=== PATIENT | male | born 1975 | race Caucasian/White ===

== ENCOUNTER 2018-06-15 20:13 | Emergency (ER) | payer MEDICAID ==
[~2018-06-15] VITALS: Ht 177.8 cm; Wt 69.7 kg
[2018-06-15 20:19] VITALS: BP 133/101
[2018-06-15] MEDS ORDERED: acetaminophen 325mg tablet PO ONE (21:00)
[2018-06-15] MEDS ORDERED: IBUP-1984 PO (21:01)
== END 2018-06-15 21:13 | disposition home or self-care (01) ==
LOC: ER 20:14
DX: S00.512A Abrasion of oral cavity, initial encounter (principal); E78.00 Pure hypercholesterolemia, unspecified; I10 Essential (primary) hypertension; G89.29 Other chronic pain; F15.90 Other stimulant use, unspecified, uncomplicated; F12.90 Cannabis use, unspecified, uncomplicated; F11.90 Opioid use, unspecified, uncomplicated; Z59.0 Homelessness; Z56.0 Unemployment, unspecified; X58.XXXA Exposure to other specified factors, initial encounter; Y93.89 Activity, other specified; Y92.89 Other specified places as the place of occurrence of the external cause; Y99.8 Other external cause status
CPT/HCPCS: 99282

== ENCOUNTER 2021-07-27 02:17 | Emergency (ER) | payer MEDICAID ==
[~2021-07-27] VITALS: Ht 177.8 cm; Wt 90.0 kg
[2021-07-27 02:22] VITALS: BP 127/82
[2021-07-27] MEDS ORDERED: SULF1TAB49 PO (03:30)
[2021-07-27] MEDS ORDERED: ibuprofen tablet 400 MG TABLET PO ONE (03:30)
[2021-07-27] MEDS ORDERED: bacitracin 15gm ointment TP ONE (03:30)
[2021-07-27] MEDS ORDERED: acetaminophen 325mg tablet PO ONE (03:30)
[2021-07-27] MEDS ORDERED: TETanus/Pertussis (Acell)/Diphther VAC/PF (Tdap-Adult) 0.5ml syringe IMVAC ONE (03:30)
[2021-07-27] MEDS ORDERED: ondansetron 4mg rapidly disintigrating tab PO ONE (03:30)
[2021-07-27] MEDS ORDERED: ceFAZolin 1gm IM kit IM ONE (03:30)
[2021-07-27] MEDS ORDERED: sulfamethoxazole/trimethoprim DS (800/160mg) tablet PO ONE (03:30)
== END 2021-07-27 04:36 | disposition home or self-care (01) ==
LOC: ER 02:17
DX: L03.115 Cellulitis of right lower limb (principal); M25.562 Pain in left knee; E78.00 Pure hypercholesterolemia, unspecified; I10 Essential (primary) hypertension; G89.29 Other chronic pain; F31.9 Bipolar disorder, unspecified; F12.90 Cannabis use, unspecified, uncomplicated; F15.90 Other stimulant use, unspecified, uncomplicated; F11.90 Opioid use, unspecified, uncomplicated; Z59.00 Homelessness unspecified; Z56.0 Unemployment, unspecified; Z88.5 Allergy status to narcotic agent; Z79.899 Other long term (current) drug therapy
CPT/HCPCS: 90471; 90715; 96372; 99284; J0690

== ENCOUNTER 2021-08-25 13:12 | Emergency (ER) | payer MEDICAID ==
[~2021-08-25] VITALS: Ht 177.8 cm; Wt 84.1 kg
[2021-08-25 13:17] VITALS: BP 132/75
[2021-08-25] MEDS ORDERED: SULF1TAB49 PO (14:59)
== END 2021-08-25 15:08 | disposition home or self-care (01) ==
LOC: ER 13:12
DX: S81.801A Unspecified open wound, right lower leg, initial encounter (principal); I10 Essential (primary) hypertension; F31.9 Bipolar disorder, unspecified; G89.29 Other chronic pain; F12.90 Cannabis use, unspecified, uncomplicated; F15.20 Other stimulant dependence, uncomplicated; Z88.5 Allergy status to narcotic agent; Z56.0 Unemployment, unspecified; Z59.00 Homelessness unspecified
CPT/HCPCS: 99283

== ENCOUNTER 2021-09-26 21:55 | Emergency (ER) | payer MEDICAID ==
[~2021-09-26] VITALS: Ht 177.8 cm; Wt 79.5 kg
[2021-09-26 22:13] VITALS: BP 117/82
[2021-09-27] MEDS ORDERED: valacyclovir 500mg tablet PO ONE (02:45)
[2021-09-27] MEDS ORDERED: valacyclovir 500mg tablet PO SCH (02:45)
[2021-09-27] MEDS ORDERED: VALA100031 PO (02:46)
== END 2021-09-27 03:41 | disposition home or self-care (01) ==
LOC: ER 21:55
DX: B02.9 Zoster without complications (principal); I10 Essential (primary) hypertension; E78.00 Pure hypercholesterolemia, unspecified; G89.29 Other chronic pain; F31.9 Bipolar disorder, unspecified; F12.90 Cannabis use, unspecified, uncomplicated; F15.20 Other stimulant dependence, uncomplicated; Z88.5 Allergy status to narcotic agent; Z59.00 Homelessness unspecified; Z56.0 Unemployment, unspecified
CPT/HCPCS: 99283

== ENCOUNTER 2021-12-13 01:53 | Emergency (ER) | payer MEDICAID ==
[~2021-12-13] VITALS: Ht 177.8 cm; Wt 79.5 kg
[~2021-12-13 01:53] MED LIST: VALA100031 PO
[2021-12-13] MEDS ORDERED: sulfamethoxazole/trimethoprim DS (800/160mg) tablet PO ONE (02:20)
[2021-12-13] MEDS ORDERED: cephalexin 250mg capsule PO ONE (02:20)
[2021-12-13] MEDS ORDERED: ibuprofen tablet 400 MG TABLET PO ONE (02:20)
[2021-12-13] MEDS ORDERED: CEPH-585 PO (02:21)
[2021-12-13] MEDS ORDERED: IBUP-1985 PO (02:21)
[2021-12-13] MEDS ORDERED: SULF1TAB45 PO (02:21)
[2021-12-13 03:12] VITALS: BP 132/84
== END 2021-12-13 03:10 | disposition home or self-care (01) ==
LOC: ER 01:54
DX: L03.012 Cellulitis of left finger (principal); E78.00 Pure hypercholesterolemia, unspecified; I10 Essential (primary) hypertension; F31.9 Bipolar disorder, unspecified; F12.90 Cannabis use, unspecified, uncomplicated; F15.20 Other stimulant dependence, uncomplicated; F19.10 Other psychoactive substance abuse, uncomplicated; Z88.5 Allergy status to narcotic agent; Z56.0 Unemployment, unspecified; Z59.00 Homelessness unspecified
CPT/HCPCS: 99284

== ENCOUNTER 2021-12-17 20:11 | Emergency (ER) | payer MEDICAID ==
[~2021-12-17] VITALS: Ht 177.8 cm; Wt 84.1 kg
[~2021-12-17 20:11] MED LIST changes: +CEPH-585 PO; +IBUP-1985 PO; +SULF1TAB45 PO
[2021-12-17 21:17] VITALS: BP 118/85
[2021-12-17] MEDS ORDERED: cephalexin 250mg capsule PO ONE (22:20)
[2021-12-17] MEDS ORDERED: ondansetron 4mg rapidly disintigrating tab PO ONE (22:20)
[2021-12-17] MEDS ORDERED: sulfamethoxazole/trimethoprim DS (800/160mg) tablet PO ONE (22:20)
[2021-12-17] MEDS ORDERED: SULF1TAB45 PO (22:42)
[2021-12-17] MEDS ORDERED: CEPH-585 PO (22:42)
--- NOTE | 2021-12-17 22:53 | NUR ---
PO MEDS X3 GIVEN
== END 2021-12-17 22:54 | disposition home or self-care (01) ==
LOC: ER 20:11
DX: L03.011 Cellulitis of right finger (principal); E78.00 Pure hypercholesterolemia, unspecified; I10 Essential (primary) hypertension; G89.29 Other chronic pain; F31.9 Bipolar disorder, unspecified; F12.90 Cannabis use, unspecified, uncomplicated; F15.90 Other stimulant use, unspecified, uncomplicated; F11.90 Opioid use, unspecified, uncomplicated; F19.90 Other psychoactive substance use, unspecified, uncomplicated; Z56.0 Unemployment, unspecified; Z59.00 Homelessness unspecified; Z72.89 Other problems related to lifestyle; Z88.5 Allergy status to narcotic agent; Z79.2 Long term (current) use of antibiotics; Z79.899 Other long term (current) drug therapy
CPT/HCPCS: 73130; 99284

== ENCOUNTER 2022-01-01 20:50 | Emergency (ER) | payer MEDICAID ==
[~2022-01-01] VITALS: Ht 177.8 cm; Wt 75.0 kg
[2022-01-01 21:26] VITALS: BP 125/85
== END 2022-01-02 00:33 | disposition left against medical advice (07) ==
LOC: ER 20:51
DX: M79.644 Pain in right finger(s) (principal); Z53.21 Procedure and treatment not carried out due to patient leaving prior to being seen by health care provider

== ENCOUNTER → 2022-02-06 | Emergency (ER) | payer MEDICAID ==
[~2022-02-06] VITALS: Ht 177.8 cm; Wt 80.0 kg
[~2022-02-06] MED LIST changes: -SULF1TAB45 PO; +acetaminophen 325mg tablet PO ONE; +ondansetron 4mg rapidly disintigrating tab PO ONE; +traMADol 50MG tablet PO ONE
== END | disposition home or self-care (01) ==
LOC: ER 21:10
DX: S16.1XXA Strain of muscle, fascia and tendon at neck level, initial encounter (principal); M54.2 Cervicalgia; E78.00 Pure hypercholesterolemia, unspecified; I10 Essential (primary) hypertension; G89.29 Other chronic pain; F31.9 Bipolar disorder, unspecified; F12.90 Cannabis use, unspecified, uncomplicated; F15.20 Other stimulant dependence, uncomplicated; Z88.5 Allergy status to narcotic agent; Z56.0 Unemployment, unspecified; Z59.00 Homelessness unspecified; V89.9XXA Person injured in unspecified vehicle accident, initial encounter; Y93.89 Activity, other specified; Y92.89 Other specified places as the place of occurrence of the external cause; Y99.8 Other external cause status
CPT/HCPCS: 99284

== ENCOUNTER 2022-08-07 04:31 | Emergency (ER) | payer MEDICAID ==
[~2022-08-07] VITALS: Ht 177.8 cm; Wt 72.7 kg
[~2022-08-07 04:31] MED LIST changes: -acetaminophen 325mg tablet PO ONE; -ondansetron 4mg rapidly disintigrating tab PO ONE; -traMADol 50MG tablet PO ONE
[2022-08-07] MEDS ORDERED: SULF1TAB49 PO (05:22)
[2022-08-07] MEDS ORDERED: CEPH-585 PO (05:22)
[2022-08-07 05:27] VITALS: BP 122/80
== END 2022-08-07 05:26 | disposition home or self-care (01) ==
LOC: ER 04:32
DX: L03.116 Cellulitis of left lower limb (principal); I10 Essential (primary) hypertension; E78.00 Pure hypercholesterolemia, unspecified; F31.9 Bipolar disorder, unspecified; F12.10 Cannabis abuse, uncomplicated; F15.10 Other stimulant abuse, uncomplicated; Z59.00 Homelessness unspecified; Z56.0 Unemployment, unspecified; Z88.5 Allergy status to narcotic agent; Z79.899 Other long term (current) drug therapy; Z79.1 Long term (current) use of non-steroidal anti-inflammatories (NSAID); Z79.2 Long term (current) use of antibiotics
CPT/HCPCS: 99283

== ENCOUNTER 2022-10-07 13:48 | Emergency (ER) | payer MEDICAID ==
[~2022-10-07] VITALS: Ht 172.7 cm; Wt 80.0 kg
[2022-10-07 14:14] VITALS: BP 116/93; PULSE 102; RESP 18; TEMP 97.8; O2SAT 98
== END 2022-10-07 16:30 | disposition left against medical advice (07) ==
LOC: ER 13:48
DX: L02.416 Cutaneous abscess of left lower limb (principal); Z53.21 Procedure and treatment not carried out due to patient leaving prior to being seen by health care provider
CPT/HCPCS: 99281

== ENCOUNTER 2024-07-06 00:46 | Emergency (ER) | payer MEDICAID ==
[~2024-07-06] VITALS: Ht 177.8 cm; Wt 86.4 kg
[~2024-07-06 00:46] MED LIST changes: -CEPH-585 PO
[2024-07-06 00:53] VITALS: BP 132/99; PULSE 104; RESP 16; TEMP 98; O2SAT 97
== END 2024-07-06 04:02 | disposition left against medical advice (07) ==
LOC: ER 00:47
DX: M54.50 Low back pain, unspecified (principal); Z53.21 Procedure and treatment not carried out due to patient leaving prior to being seen by health care provider; Z88.5 Allergy status to narcotic agent

== ENCOUNTER 2024-09-06 01:14 | Emergency (ER) | payer MEDICAID ==
[~2024-09-06] VITALS: Ht 177.8 cm; Wt 77.7 kg
--- NOTE | 2024-09-06 01:25 | ELECTROCARDIOGRAPH REPORT ---
[facility] Test Date: 2024-09-06 Test Time: 01:23:47 Pat Name: DESIRE URIOSTEGUI Department: [facility] Patient ID: [id number] Room: Gender: M Cna Per Diem: : 1975 Requested By: CLAU BROWN Order Number: [id number] Reading MD: Dr. Clau Brown Measurements Intervals [place] Rate: 92 P: 68 FL: 158 QRS: -3 QRSD: 94 T: 44 QT: 350 QTc: 433 Interpretive Statements Sinus rhythm Electronically Signed On 09-06-2024 4:14:[address] Clau Brown Please click the below link to view image of tracing.
[2024-09-06 01:28] VITALS: TEMP 98
--- NOTE | 2024-09-06 01:34 | Physician Documentation ---
History of Present Illness Stated Complaint: ANXIETY Time Seen by MD: 01:31 OK to notify your PCP?: Yes Primary Medical Doctor: none Source: patient, RN/MD, EMS, RN notes reviewed, EMS notes reviewed Mode of Arrival: EMS Exam Limitations: no limitations HPI This patient is a 48-year-old male presenting to the ED with chief complaint of restlessness and anxiety. Patient states that he does use methamphetamine as well as marijuana and EtOH. His last drink was one beer today, and he last used methamphetamine yesterday. Patient states that now he feels a tightness in his chest and that his heart is beating very fast. Reports difficulty sleeping as well. Patient notes that he has been recently fighting with his girlfriend as well which he states makes him very upset and anxious. Patient denies any associated symptoms at this time. Patient denies any alleviating or exacerbating factors. Medication Reconciliation Allergies: Coded Allergies: codeine (Verified Allergy, Mild, Itch, 08/07/22) Scheduled Valacyclovir HCl (Valacyclovir), 1 TAB PO Q8H Scheduled PRN Ibuprofen (Ibuprofen), 1 TAB PO Q6H PRN for pain Past Medical History Past Medical History: High Cholesterol, Endocarditis, Hypertension, Chronic Pain, Cellulitis, Bipolar, Depression Past Surgical History: no surgical history Smoking Status: Current every day smoker Alcohol Use: Heavy Drug Use: marijuana, methamphetamine, heroin, other Lives In: Homeless Occupation: unemployed Review of Systems All Other Systems at this time: Reviewed and Negative Physical Exam Vital Signs: RN Vital Signs have been reviewed: Yes Physical Exam General: The patient is well developed, well nourished, nontoxic appearing and is in no acute distress. Skin: [place], warm and dry with no rashes. HEENT: Head was normocephalic and atraumatic. Eyes - pupils equal, round, reactive to light and accommodation. Extraocular movements were intact. Conjunctivae were nonicteric. Ears - bilateral tympanic membranes were normal. The mouth and oropharynx were clear with moist mucous membranes. There were no pharyngeal exudates or erythema. Neck: Supple and nontender. There was no jugular venous distention, lymphadenopathy, thyromegaly or masses. Chest: Clear to auscultation bilaterally without wheezes, rales or rhonchi. No accessory muscle use. No dullness to percussion. Heart: Rate regular and rhythmic. S1, S2. No murmurs. Palpation of the chest wall was normal. No rubs or thrills. Abdomen: Soft, nontender and nondistended. Positive bowel sounds. No guarding or rebound. No hepatosplenomegaly or palpable masses. Extremities: 1+ pitting edema to bilateral lower extremiites. No cyanosis or clubbing. The patient moves all extremities. Pulses were equal and symmetric. Neurologic: Cranial nerves II-XII were intact. Sensation was intact to light touch throughout. Motor strength was 5/5 in all four extremities. Deep tendon reflexes were intact in both upper and lower extremities. Psychologic: The patient was oriented to person, place and time. The patient demonstrated appropriate judgement and insight. Progress Results/Orders Reviewed/noted all lab results: Yes Results/Orders Orders - CLAU BROWN MD Larazepam (Ativan) (09/06/24 01:31) Completed Orders - CLAU BROWN MD Electrocardiogram (09/06/24 01:19) Re-Evaluation Re-Evaluation : Re-Evaluation: Improved Progress Patient was seen and examined. Patient is given reassurance. Patient is complaining of anxiety after using methamphetamine. Patient's EKG shows no signs of ischemia. Patient has a few risk factors for potential coronary artery disease assuming he has polysubstance drug abuse including methamphetamine. However he is feeling much better his symptoms have resolved. He received A tivan after a normal EKG and was discharged home. EKG/XRAY/CT/US/VASC/MRI EKG : Intepreting Monitor?: Yes Additional Comment [place] [id number] ELECTROCARDIOGRAM Patient: DESIRE URIOSTEGUI Medical Record: [id number] [facility] : 1975, Age: 48Sex: M Location: ER Patient Status: DEP ER Service Date/Time: 119 Ordering Physician: CLAU BROWN MD Exam Name: ELECTROCARDIOGRAM Technologist: [facility] Test Date: 2024-09-06 Test Time: 01:23:47 Pat Name: DESIRE URIOSTEGUI Department: [facility] Room: Gender: M [employer] Bench: : 1975 Requested By: CLAU BROWN Order Number: [id number] Reading MD: Dr. Clau Brown Measurements Intervals [place] Rate: 92 P: 68 [place]: 158 QRS: -3 QRSD: 94 T: 44 QT: 350 QTc: 433 Interpretive Statements Sinus rhythm Electronically Signed On 09-06-2024 4:14:[address] Clau Brown Please click the below link to view image of tracing. EKG Date and Time:09/06/24122 Electronically Signed by: CLAU BROWN MD Date and Time: 09/06/24413 NO PRIMARY CARE PROVIDER~ cc: ~ Medical Decision Making Additional info obtained from: old records Differential Dx:Considerations: Include: Bowel obstruction, Cholangitis, Cholelithasis, Constipation, Diverticular disease, Gastritis/PUD, Gastroenteritis, GI hemorrhage, Hernia, Hepatitis, Inflammatory BD, Ischemic bowel, Pancreatitis, Testicular torsion, Trauma, intraabdominal, Urinary tract infection, Urolithiasis, Other Departure Time of Disposition: 01:33 Disposition: 01 HOME / SELF CARE / HOMELESS Impression: Primary Impression: Anxiety Additional Impression: Methamphetamine abuse Condition: Stable Discharge Instructions: Methamphetamines Use Disorder Additional Instructions: Please stop using methamphetamine, as this will exacerbate any anxiety symptoms you have. Your EKG and workup today in the ER was not concerning for any emergencies. Referrals: NO PRIMARY CARE PROVIDER (PCP) Signature Scribe Signature: Scribed for Clau Brown MD by Jaycee Hanks. 09/06/24 01:33 Attestation: The note accurately reflects work and decisions made by me.Clau Brown MD 09/06/24 05:39 CLAU BROWN MD Sep 06, 2024 01:34
[2024-09-06 02:39] VITALS: BP 144/93; PULSE 88; RESP 15; O2SAT 98
== END 2024-09-06 02:53 | disposition home or self-care (01) ==
LOC: ER 01:14
DX: F41.9 Anxiety disorder, unspecified (principal); F15.10 Other stimulant abuse, uncomplicated; I10 Essential (primary) hypertension; F31.9 Bipolar disorder, unspecified; F11.90 Opioid use, unspecified, uncomplicated; F12.90 Cannabis use, unspecified, uncomplicated; E78.00 Pure hypercholesterolemia, unspecified; F17.200 Nicotine dependence, unspecified, uncomplicated; Z59.00 Homelessness unspecified; Z88.5 Allergy status to narcotic agent; Z56.0 Unemployment, unspecified
CPT/HCPCS: 36415; 80346; 93005; 99284